=== PATIENT | male | born 1955 | race Caucasian/White ===

== ENCOUNTER 2020-07-29 16:11 | Outpatient (CLI) | payer OTHER ==
--- NOTE | 2020-07-29 16:27 | RAD ---
Chest 2 views HISTORY: Dyspnea. COMPARISON: 11/29/2005. FINDINGS: Cardiac silhouette is magnified and enlarged. Pulmonary vasculature is engorged with widesp read reticulonodular interstitial prominence. Small amount of fluid within the right pleural fissures. Blunting of the right costophrenic angle. Mild patchy bibasilar infiltrates, right greater than left. No pneumothorax. IMPRESSION : Cardiomegaly with pulmonary vascular congestion/edema. Small right pleural effusion. Consider CHF. Right lung base infiltrate greater than, may represent superimposed pneumonitis. Correlate for right lower lobe pneumonitis.
== END 2020-07-29 16:12 | disposition home or self-care (01) ==
LOC: RAD-FRANK 16:11
PROVIDERS: ATTEND Nurse Practitioner Family
DX: R06.02 Shortness of breath (principal); I51.7 Cardiomegaly; J90 Pleural effusion, not elsewhere classified; R91.8 Other nonspecific abnormal finding of lung field
CPT/HCPCS: 71046